=== PATIENT | female | born 1995 | race Caucasian/White ===

== ENCOUNTER → 2016-09-11 | Outpatient (CLI) | payer OTHER ==
--- NOTE | 2016-09-11 15:47 | REP ---
CT MAXILLOFACIAL SINUSES WITHOUT CONTRAST: 09/11/2016. Comparison: 10/26/2014, 09/20/2014. Clinical history: Chronic maxillary sinusitis. Technique: Axial soft tissue and bone windows with coronal bone window reconstructions are reviewed. Findings. Study again shows postsurgical changes with left uncinectomy and partial left inferior nasal turbinectomy with septoplasty. Since that time there has been right-sided surgery with uncinectomies. The antrostomies are widely patent. However, there is progression of disease within the sphenoid sinuses with mucosal thickening and air fluid level on the right while the left sphenoid shows only minimal mucosal thickening on its midline wall, both were totally normal on the previous study. There is opacification of anterior right ethmoid air cells on the current study, previously only the left anterior ethmoid air cells were opacified. There is mucosal thickening in the bilateral maxillary antra and bilateral air-fluid levels suggesting acute and chronic sinusitis. Frontal sinuses remain clear. The nasal spine of the maxilla and nasal bones were intact. Slightly deviated septum towards the right anteriorly and inferiorly. Orbital floor, medial saldana and lateral orbital struts were all intact. Sinus saldana were otherwise normal. The mandibular condyles articulate normally in their rami unremarkable. Skull base and craniocervical junction appear normal with mastoids intact. Impression: 1. Status post interval right sinus surgery with uncinectomy and findings now showing a complete opacification of the right sphenoid sinus which was clear on the previous study and anterior right ethmoid opacification well previously the left anterior ethmoids were opacified. Air-fluid levels in both maxillary sinuses have increased since the previous study. Frontal sinuses remain clear. Signed by Jacob Iniguez MD 09/11/2016 06:01 P
== END ==
LOC: M RAD 14:55
PROVIDERS: ATTEND Family Medicine
DX: J32.0 Chronic maxillary sinusitis (principal)

== ENCOUNTER → 2017-01-25 | Outpatient (REF) | payer OTHER | LOC: M SFHCLERA 11:30 | PROVIDERS: ATTEND Family Medicine | DX: B02.9 Zoster without complications (principal) ==

== ENCOUNTER → 2017-02-16 | Outpatient (CLI) | payer OTHER ==
--- NOTE | 2017-02-16 09:30 | REP ---
Clinical: Shortness of breath . Comparison: 09/11/2014 . Technique: PA and lateral. Findings: The mediastinum and cardiac silhouette are normal. The lung horn are clear and without acute consolidation, effusion, or pneumothorax. The skeletal structures are intact and normal. Impression: 1. No acute cardiopulmonary process. Signed by Khurram Richardson MD 02/16/2017 09:21 A
== END ==
LOC: M ADAMS 09:11
PROVIDERS: ATTEND Physician Assistant
DX: R06.02 Shortness of breath (principal); R07.9 Chest pain, unspecified

== ENCOUNTER → 2017-05-20 | Outpatient (REF) | payer OTHER ==
[2017-05-20 17:27] LABS: FREE T4 1.08 NG/DL (0.78-1.33)
== END ==
LOC: M SFHCLERA 14:21
PROVIDERS: ATTEND Family Medicine
DX: E04.9 Nontoxic goiter, unspecified (principal)

== ENCOUNTER → 2017-05-22 | Outpatient (REF) | payer OTHER ==
[2017-05-22 20:52] LABS: BASO # 0.1 10^3/uL (0.0-0.2); BASO % 0.5 % (0.0-1.0); EOS # 0.7 10^3/uL (0.0-0.50); EOS % 7.4 % (0.0-3.0); IMMATURE GRANULOCYTE % 0.2 % (0-0); LYMPH # 2.3 10^3/uL (1.5-6.5); LYMPH % 24.1 % (24.0-44.0); MEAN CORPUSCULAR HEMOGLOBIN 29.7 pg (27.0-33.0); MEAN CORPUSCULAR HGB CONC 32.5 g/dl (32.0-36.5); MEAN CORPUSCULAR VOLUME 91.3 fl (80.0-96.0); MONO # 1.2 10^3/uL (0.0-0.8); MONO % 12.5 % (0.0-5.0); NEUTROPHILS # 5.2 10^3/uL (1.8-7.7); NEUTROPHILS % 55.3 % (36.0-66.0); PLATELET COUNT, AUTOMATED 286 10^3/uL (150-450); RED CELL DISTRIBUTION WIDTH 12.3 % (11.5-14.5); WHITE BLOOD COUNT 9.5 10^3/uL (4.0-10.0)
[2017-05-23 11:06] LABS: CONTROL LINE MONO RF C INT CTR LINE PRESENT
== END ==
LOC: M LAB REF 11:15
PROVIDERS: ATTEND Physician Assistant Medical
DX: J06.9 Acute upper respiratory infection, unspecified (principal)

== ENCOUNTER → 2017-06-06 | Outpatient (REF) | payer OTHER | LOC: M LAB REF 16:23 | PROVIDERS: ATTEND Physician Assistant | DX: J02.9 Acute pharyngitis, unspecified (principal) ==

== ENCOUNTER → 2017-08-26 | Outpatient (REF) | payer OTHER ==
[2017-08-26 12:15] LABS: APPEARANCE, URINE CLEAR (CLEAR); BACTERIA, URINE AUTO 1+ (NEGATIVE); BILIRUBIN, URINE AUTO NEGATIVE (NEGATIVE); BLOOD, URINE BLOOD NEGATIVE (NEGATIVE); COLOR, URINE YELLOW (YELLOW); GLUCOSE, URINE (UA) AUTO NEGATIVE (NEGATIVE); KETONE, URINE AUTO NEGATIVE (NEGATIVE); LEUKOCYTE ESTERASE, URINE AUTO 1+ (NEGATIVE); MUCUS, URINE SMALL (NEGATIVE); NITRITE, URINE AUTO NEGATIVE (NEGATIVE); PROTEIN, URINE AUTO NEGATIVE (NEGATIVE); RBC, URINE AUTO 3 /HPF (0-3); SPECIFIC GRAVITY URINE AUTO 1.025 (1.002-1.035); SQUAMOUS EPITHELIAL CELL UR AU 1 /HPF (0-6); UROBILINOGEN, URINE AUTO 0.2 mg/dL (0.0-2.0); WBC, URINE AUTO 6 /HPF (0-3)
== END ==
LOC: M SFHCLERA 08:44
DX: N36.8 Other specified disorders of urethra (principal)

== ENCOUNTER → 2017-10-04 | Outpatient (CLI) | payer OTHER ==
[~2017-10-04] MED LIST: PROHANCE 279.3MG/ML 15ML VIAL (A9576) As Ordered; PROHANCE 279.3MG/ML 5ML VIAL (A9576) As Ordered
== END ==
LOC: M RAD 16:58
DX: N36.8 Other specified disorders of urethra (principal); N83.202 Unspecified ovarian cyst, left side
CPT/HCPCS: A9576

== ENCOUNTER 2017-10-09 07:18 | Day surgery (SDC) | payer OTHER ==
[2017-10-09] MEDS ORDERED: fentaNYL 100 MCG/2 ML INJECTION (J3010) As Ordered (07:44)
[2017-10-09] MEDS ORDERED: MIDAZOLAM INJ 2 MG/2 ML VIAL (J2250) As Ordered (07:44)
[2017-10-09 08:06] LABS: HEMATOCRIT 43.8 % (36.0-47.0); HEMOGLOBIN 14.8 g/dl (12.0-16.0); MEAN CORPUSCULAR HEMOGLOBIN 29.9 pg (27.0-33.0); MEAN CORPUSCULAR HGB CONC 33.8 g/dl (32.0-36.5); MEAN CORPUSCULAR VOLUME 88.5 fl (80.0-96.0); PLATELET COUNT, AUTOMATED 326 10^3/uL (150-450); RED BLOOD COUNT 4.95 10^6/uL (4.00-5.40); RED CELL DISTRIBUTION WIDTH 11.9 % (11.5-14.5); WHITE BLOOD COUNT 10.8 10^3/uL (4.0-10.0)
[2017-10-09] MEDS: LR 1,000 ML IV (08:09)
[2017-10-09 08:26] LABS: CONTROL LINE HCG INT CTR LINE PRESENT; HCG, SERUM QUALITATIVE NEGATIVE (NEGATIVE)
[2017-10-09] MEDS ORDERED: ceFAZolin 2 GM/D5W 50 ML IV BAG (J0690 PER 500MG) As Ordered (08:35)
[2017-10-09] MEDS ORDERED: LIDOCAINE 2% INJ 100 MG/5 ML SDV (FOR ANES.) As Ordered (08:51)
[2017-10-09] MEDS ORDERED: PROPOFOL 200 MG/20 ML VIAL As Ordered ×2 (08:51→09:01)
[2017-10-09] MEDS: LIDOCAINE 1% SDV INJ 30 ML VIAL As Ordered (09:07)
== END 2017-10-09 10:30 | disposition home or self-care (01) ==
LOC: M SDC 07:18
DX: N36.8 Other specified disorders of urethra (principal); G43.909 Migraine, unspecified, not intractable, without status migrainosus; J45.909 Unspecified asthma, uncomplicated; Z88.0 Allergy status to penicillin; Z88.2 Allergy status to sulfonamides; Z87.09 Personal history of other diseases of the respiratory system
CPT/HCPCS: 53060

== ENCOUNTER → 2017-11-05 | Outpatient (REF) | payer OTHER | LOC: M LAB REF 19:17 | DX: R30.0 Dysuria (principal) | CPT/HCPCS: 87086 ==

== ENCOUNTER → 2017-12-23 | Outpatient (REF) | payer OTHER ==
[2017-12-23 19:51] LABS: FREE T4 0.97 NG/DL (0.76-1.46)
[2017-12-23 19:51] LABS: THYROID STIMULATING HORMONE 0.677 uIU/ML (0.358-3.740)
[2017-12-24 10:57] LABS: TOTAL 25(OH) VITAMIN D 12.3 NG/ML (30.0-100.0)
== END ==
LOC: M SFHCADAM 16:20
DX: E04.1 Nontoxic single thyroid nodule (principal); E55.9 Vitamin D deficiency, unspecified

== ENCOUNTER → 2017-12-27 | Outpatient (CLI) | payer OTHER | LOC: M RAD 14:37 | DX: E04.1 Nontoxic single thyroid nodule (principal); J32.0 Chronic maxillary sinusitis | CPT/HCPCS: 76536 ==

== ENCOUNTER → 2018-11-07 | Outpatient (CLI) | payer BC ==
[~2018-11-07] MED LIST changes: +ALLE180T33 PO; +DIBU10OI TOP; +FLUT11IN INH; +PREVTAB2; -PROHANCE 279.3MG/ML 15ML VIAL (A9576) As Ordered; -PROHANCE 279.3MG/ML 5ML VIAL (A9576) As Ordered; +VENTAER INH
--- NOTE | 2018-11-07 14:36 | REP ---
Clinical: Cellulitis. Possible abscess. Technique: Real time gonzalez scale and color Doppler evaluation using linear high frequency transducer. Findings: Directed ultrasound examination at the right antecubital fossa demonstrates a complex collection presumed to be abscess measuring 9.9 x 7.3 x 9.5 mm with a sinus tract to the skin surface. Impression: Draining abscess in the antecubital fossa. Electronically Signed by Khurram Richardson MD 11/07/2018 02:27 P
== END ==
LOC: M RAD 13:23
PROVIDERS: ATTEND Family Medicine
DX: L03.113 Cellulitis of right upper limb (principal); L02.413 Cutaneous abscess of right upper limb

== ENCOUNTER → 2018-12-09 | Outpatient (CLI) | payer BC ==
--- NOTE | 2018-12-10 03:13 | REP ---
Clinical: Left-sided back pain and sciatica . Technique: AP, lateral, bilateral oblique, and coned-down views. Findings: Alignment and lordosis is maintained. The vertebral bodies including transverse process and spinous processes are intact and normal. There is no evidence for acute fracture / compression injury or subluxation. Focal degenerative changes include endplate sclerosis and disc space narrowing at L5-S1 and to a lesser extent the L4-5 with associated hypertrophic facet changes. Impression: Focal degenerative changes at the L5-S1 and L4-5 levels. Clinical correlation is recommended. Associated chronic spondylolysis without spondylolisthesis cannot definitively be excluded. Electronically Signed by Khurram Richardson MD 12/10/2018 03:03 A
== END ==
LOC: M ADAMS 16:15
PROVIDERS: ATTEND Physician Assistant Medical
DX: M54.42 Lumbago with sciatica, left side (principal); M51.37 Other intervertebral disc degeneration, lumbosacral region

== ENCOUNTER 2018-12-25 16:20 | Emergency (ER) | payer BC ==
[~2018-12-25] VITALS: Ht 165.1 cm; Wt 93.5 kg
[2018-12-25 17:00] LABS: BASO % 0.1 % (0.0-1.0); EOS # 0.1 10^3/uL (0.0-0.50); EOS % 0.4 % (0.0-3.0); HEMATOCRIT 46.1 % (36.0-47.0); HEMOGLOBIN 15.6 g/dl (12.0-15.5); LYMPH # 1.2 10^3/uL (1.5-6.5); LYMPH % 8.4 % (24.0-44.0); MEAN CORPUSCULAR HEMOGLOBIN 31.5 pg (27.0-33.0); MEAN CORPUSCULAR HGB CONC 33.8 g/dl (32.0-36.5); MEAN CORPUSCULAR VOLUME 92.9 fl (80.0-96.0); NEUTROPHILS # 11.5 10^3/uL (1.8-7.7); NEUTROPHILS % 83.7 % (36.0-66.0); PLATELET COUNT, AUTOMATED 271 10^3/uL (150-450); RED BLOOD COUNT 4.96 10^6/uL (4.00-5.40); WHITE BLOOD COUNT 13.8 10^3/uL (4.0-10.0)
[2018-12-25] MEDS ORDERED: NS 1,000 ML IV ONE (17:00)
[2018-12-25] MEDS ORDERED: KETOROLAC 30 MG/ML VIAL (J1885) IV ONE (17:00)
[2018-12-25] MEDS ORDERED: ONDANSETRON 4MG/2ML VIAL (J2405) IV ONE (17:00)
[2018-12-25 17:33] LABS: ALBUMIN 3.9 GM/DL (3.2-5.2); ALT/SGPT 40 U/L (12-78); AMYLASE 50 U/L (25-115); BILIRUBIN,DIRECT 0.2 MG/DL (0.0-0.2); BILIRUBIN,TOTAL 0.9 MG/DL (0.2-1.0); BLOOD UREA NITROGEN 16 MG/DL (7-18); CALCIUM LEVEL 8.3 MG/DL (8.5-10.1); CARBON DIOXIDE LEVEL 24 MEQ/L (21-32); CHLORIDE LEVEL 106 MEQ/L (98-107); CREATININE FOR GFR 0.63 MG/DL (0.55-1.30); GLOMERULAR FILTRATION RATE > 60.0 (>60); GLUCOSE, FASTING 85 MG/DL (70-100); LIPASE 144 U/L (73-393); POTASSIUM SERUM 4.5 MEQ/L (3.5-5.1); SODIUM LEVEL 137 MEQ/L (136-145); TOTAL PROTEIN 7.6 GM/DL (6.4-8.2)
[2018-12-25] MEDS ORDERED: ISOVUE-370 76% 100ML VIAL (Q9967) As Ordered ONE (18:02)
--- NOTE | 2018-12-25 19:09 | REPVR ---
EXAM: CT Abdomen and Pelvis With Contrast EXAM DATE/TIME: 12/25/2018 4:50 PM CLINICAL HISTORY: 23 years old, female; Abdominal pain; Other: Rlq; Additional info: Rlq pain TECHNIQUE: Imaging protocol: Axial computed tomography images of the abdomen and pelvis with intravenous contrast. Coronal and sagittal reformatted images were created and reviewed. Radiation optimization: All CT scans at this facility use at least one of these dose optimization techniques: automated exposure control; mA and/or kV adjustment per patient size (includes targeted exams where dose is matched to clinical indication); or iterative reconstruction. Contrast material: ISOVUE 370; Contrast volume: 100 ml; Contrast route: IV; COMPARISON: MRI PELVIS W/O FOLL WITH CON 10/04/2017 5:36 PM FINDINGS: ABDOMEN: Liver: Diffuse hepatic steatosis. Gallbladder and bile ducts: No radiodense gallstones. No biliary ductal dilatation. Pancreas: Unremarkable. Spleen: Unremarkable. Adrenals: Unremarkable. Kidneys and ureters: No mass. No radiodense calculi. No hydronephrosis. Stomach and bowel: Mild small bowel wall thickening and hyperemia, most notably in the lower abdomen and pelvis. Submucosal fat deposition in the colon, suggesting chronic inflammation. Questionable mild nonspecific rectosigmoid wall thickening. Appendix: Normal. PELVIS: Bladder: Mild circumferential urinary bladder wall thickening, likely secondary to underdistention. Reproductive: 5.7 x 4.7 cm left adnexal cystic lesion. ABDOMEN and PELVIS: Intraperitoneal space: Trace nonspecific free pelvic fluid, likely physiologic and/or reactive. No organized fluid collection. No free air. Bones/joints: Small, fracture umbilical hernia. Soft tissues: Unremarkable. Vasculature: Unremarkable. No aneurysm. Lymph nodes: Small mesenteric lymph nodes, likely reactive. No pathologically enlarged lymph nodes. IMPRESSION: 1. Findings suggestive of nonspecific enterocolitis, as described above. No abscess, obstruction or free air. Follow-up to resolution is recommended. 2. 5.7 x 4.7 cm left adnexal cystic lesion. If clinically indicated, pelvic ultrasound may be obtained for further evaluation. 3. Additional findings, as above. Electronically signed by: Tigre Colon On 12/25/2018 19:09:23 PM
--- NOTE | 2018-12-25 20:11 | REPVR ---
EXAM: US Pelvis Complete, Transabdominal and US Pelvis, Transvaginal EXAM DATE/TIME: 12/25/2018 7:57 PM CLINICAL HISTORY: 23 years old, female; Pelvic pain; Additional info: Large left adenexal cyst on ct/ro torsion TECHNIQUE: Imaging protocol: Real-time transabdominal and transvaginal pelvic ultrasound (complete) with image documentation. Transvaginal imaging was used for better evaluation of the endometrium and adnexa. COMPARISON: US PELVIC NON-OB COMPLETE 11/17/2014 4:36 PM FINDINGS: Uterus/cervix: 7.5 x 2.8 x 4 cm. Normal endometrial thickness, measuring approximately 5 mm. Right ovary: 2.5 x 2.1 x 1.7 cm. No mass. Normal ovarian blood flow. Left ovary: 5.3 x 4.7 x 5.5 cm. 5 x 4.8 x 4.4 cm complex cystic lesion with low level internal echoes. No solid mass. Normal ovarian blood flow. Free fluid: Trace nonspecific free pelvic fluid, likely physiologic. IMPRESSION: 5 x 4.8 x 4.4 cm complex left ovarian cystic lesion with low level internal echoes, suggestive of a hemorrhagic cyst or endometrioma. Electronically signed by: Tigre Colon On 12/25/2018 20:10:54 PM
[2018-12-25] MEDS ORDERED: FLAG500T PO (20:28)
[2018-12-25] MEDS ORDERED: CIPR-249 PO (20:28)
[2018-12-25] MEDS ORDERED: ONDA4TAB6 PO (20:29)
[2018-12-25 20:44] VITALS: BP 115/65
--- NOTE | 2018-12-30 14:06 | ED PDOC ---
Post-Departure Follow-Up edwige stout and dr orta faxed formal report of pelvis us and ct abd/p for Shimon Bey lg, MD December 30, 2018 14:06
== END 2018-12-25 20:52 | disposition home or self-care (01) ==
LOC: M ED 16:20
DX: K52.9 Noninfective gastroenteritis and colitis, unspecified (principal); N39.0 Urinary tract infection, site not specified; N83.292 Other ovarian cyst, left side; J45.909 Unspecified asthma, uncomplicated; Z79.3 Long term (current) use of hormonal contraceptives; Z88.0 Allergy status to penicillin; Z88.1 Allergy status to other antibiotic agents; Z88.2 Allergy status to sulfonamides
CPT/HCPCS: 74177; 76830; 76856; 80048; 80076; 81001; 82150; 83690; 84702; 85025; 87086; 93976; 96374; 96375; 99284; J1885; J2405; Q9967

== ENCOUNTER → 2018-12-26 | Outpatient (REF) | payer BC ==
[~2018-12-26] MED LIST changes: +CIPR-249 PO; +FLAG500T PO; +ONDA4TAB6 PO
== END ==
LOC: M LAB REF 12:24
PROVIDERS: ATTEND Physician Assistant
DX: K52.9 Noninfective gastroenteritis and colitis, unspecified (principal)

== ENCOUNTER 2019-03-02 07:06 | Day surgery (SDC) | payer BC ==
[~2019-03-02] VITALS: Ht 165.1 cm; Wt 92.5 kg
[~2019-03-02 07:06] MED LIST changes: +ACET-907 PO; +IBUP-1114 PO; +NS 1,000 ML IV ONE
[2019-03-02] MEDS ORDERED: LIDOCAINE 2% INJ 100 MG/5 ML SDV (FOR ANES.) As Ordered ONE (07:09)
[2019-03-02] MEDS ORDERED: PROPOFOL 200 MG/20 ML VIAL As Ordered ONE (07:09)
--- NOTE | 2019-03-02 08:52 | ROOR ---
Patient Name: Marleny Sanchez Procedure Date: 03/02/2019 8:20 AM Date of : 1995 Age: 23 Room: [facility] Gender: Female Note Status: Finalized Procedure: Colonoscopy Indications: Chronic diarrhea Providers: Sebastian Angulo MD Referring MD: ASHA Mcgarry Requesting Provider: Medicines: Monitored Anesthesia Care Complications: No immediate complications. Procedure: Pre-Anesthesia Assessment: - Prior to the procedure, a History and Physical was performed, and patient medications and allergies were reviewed. The patient is competent. The risks and benefits of the procedure and the sedation options and risks were discussed with the patient. All questions were answered and informed consent was obtained. Patient identification and proposed procedure were verified by the physician, the nurse and the anesthesiologist in the procedure room. Mental Status Examination: alert and oriented. Airway Examination: normal oropharyngeal airway and neck mobility. Respiratory Examination: clear to auscultation. CV Examination: normal. Prophylactic Antibiotics: The patient does not require prophylactic antibiotics. Prior Anticoagulants: The patient has taken no previous anticoagulant or antiplatelet agents. ASA Grade Assessment: II - A patient with mild systemic disease. After reviewing the risks and benefits, the patient was deemed in satisfactory condition to undergo the procedure. The anesthesia plan was to use monitored anesthesia care (MAC). Immediately prior to administration of medications, the patient was re-assessed for adequacy to receive sedatives. The heart rate, respiratory rate, oxygen saturations, blood pressure, adequacy of pulmonary ventilation, and response to care were monitored throughout the procedure. The physical status of the patient was re-assessed after the procedure. The Colonoscope was introduced through the anus and advanced to the terminal ileum, with identification of the appendiceal orifice and IC valve. The colonoscopy was performed without difficulty. The patient tolerated the procedure well. The quality of the bowel preparation was good. The terminal ileum, ileocecal valve, appendiceal orifice, and rectum were photographed. Scope insertion time was 2 minutes. Scope withdrawal time was 6 minutes. The total duration of the procedure was 8 minutes. Findings: The perianal and digital rectal examinations were normal. The terminal ileum appeared normal. Biopsies were taken with a cold forceps for histology. Verification of patient identification for the specimen was done by the physician and nurse using the patient's name, date and medical record number. Estimated blood loss was minimal. Normal mucosa was found in the entire colon. Biopsies for histology were taken with a cold forceps from the right colon, left colon, transverse colon and rectosigmoid colon for evaluation of microscopic colitis. Non-bleeding external and internal hemorrhoids were found during endoscopy. The hemorrhoids were small. Retroflexion in the rectum was not performed due to anatomy. Impression: - The examined portion of the ileum was normal. Biopsied. - Normal mucosa in the entire examined colon. Biopsied. - Non-bleeding external and internal hemorrhoids. Recommendation: - Patient has a contact number available for emergencies. The signs and symptoms of potential delayed complications were discussed with the patient. Return to normal activities tomorrow. Written discharge instructions were provided to the patient. - High fiber diet. - Continue present medications. - Await pathology results. - Repeat colonoscopy at age 51 for screening purposes. - Telephone GI clinic for pathology results in 2 weeks. - Return to primary care physician. Sebastian Angulo MD Sebastian Angulo MD 03/02/2019 8:52:32 AM Electronically signed by Sebastian Angulo MD Number of Addenda: 0 Note Initiated On: 03/02/2019 8:20 AM Estimated Blood Loss: Estimated blood loss was minimal.
[2019-03-02 09:00] VITALS: BP 117/80
== END 2019-03-02 09:12 | disposition home or self-care (01) ==
LOC: M OPP 07:06
PROVIDERS: ATTEND Internal Medicine Gastroenterology
DX: K64.8 Other hemorrhoids (principal); K52.9 Noninfective gastroenteritis and colitis, unspecified

== ENCOUNTER → 2019-04-08 | Outpatient (CLI) | payer BC ==
[~2019-04-08] MED LIST changes: -NS 1,000 ML IV ONE
--- NOTE | 2019-04-09 08:58 | REP ---
Clinical: Right hip pain and sciatica. Technique: Neutral and frog lateral views of the right hip. Findings: Osseous structures, joint spaces, and surrounding soft tissues are normal for age. No acute fracture dislocation. No overt congenital or arthritic changes appreciated. No loose bodies. The joint space appears normal. Impression: Normal, age-appropriate right hip radiographs. Electronically Signed by Khurram Richardson MD 04/09/2019 08:49 A
--- NOTE | 2019-04-09 08:59 | REP ---
Clinical: Back pain and sciatica . Technique: AP, lateral, bilateral oblique, and coned-down views. Findings: Alignment and lordosis is maintained. The vertebral bodies including transverse process and spinous processes are intact and there is no evidence for acute fracture / compression injury or subluxation. No evidence for spondylolysis or spondylolisthesis. Mild disc space narrowing at L5-S1 noted. Impression: Mild disc space narrowing at L5-S1. Electronically Signed by Khurram Richardson MD 04/09/2019 08:50 A
== END ==
LOC: M ADAMS 15:37
PROVIDERS: ATTEND Physician Assistant Medical
DX: M51.37 Other intervertebral disc degeneration, lumbosacral region (principal)

== ENCOUNTER → 2019-05-18 | Outpatient (CLI) | payer BC ==
[2019-05-18 18:32] LABS: ALBUMIN 3.7 GM/DL (3.2-5.2); ALT/SGPT 39 U/L (12-78); BILIRUBIN,TOTAL 0.3 MG/DL (0.2-1.0); BLOOD UREA NITROGEN 17 MG/DL (7-18); CALCIUM LEVEL 8.5 MG/DL (8.5-10.1); CARBON DIOXIDE LEVEL 28 MEQ/L (21-32); CHLORIDE LEVEL 107 MEQ/L (98-107); CREATININE FOR GFR 0.68 MG/DL (0.55-1.30); GLOMERULAR FILTRATION RATE > 60.0 (>60); GLUCOSE, FASTING 90 MG/DL (70-100); HEMATOCRIT 39.5 % (36.0-47.0); HEMOGLOBIN 12.7 g/dl (12.0-15.5); MEAN CORPUSCULAR HEMOGLOBIN 30.4 pg (27.0-33.0); MEAN CORPUSCULAR HGB CONC 32.2 g/dl (32.0-36.5); MEAN CORPUSCULAR VOLUME 94.5 fl (80.0-96.0); PLATELET COUNT, AUTOMATED 278 10^3/uL (150-450); POTASSIUM SERUM 4.6 MEQ/L (3.5-5.1); PROLACTIN 2.8 NG/ML; RED BLOOD COUNT 4.18 10^6/uL (4.00-5.40); SODIUM LEVEL 143 MEQ/L (136-145); TOTAL PROTEIN 6.7 GM/DL (6.4-8.2); WHITE BLOOD COUNT 9.8 10^3/uL (4.0-10.0)
[2019-05-18 19:11] LABS: HEMOGLOBIN A1c 5.2 %
== END ==
LOC: M SMT 15:10
PROVIDERS: ATTEND Obstetrics & Gynecology
DX: N97.9 Female infertility, unspecified (principal)

== ENCOUNTER → 2019-06-02 | Outpatient (CLI) | payer BC ==
[~2019-06-02] MED LIST changes: +ISOVUE-370 76% 100ML VIAL (Q9967) As Ordered ONE
--- NOTE | 2019-06-02 16:19 | REP ---
HYSTEROSALPINGOGRAM: The patient is referred for hysterosalpingogram. Clinician catheterized the cervix and injected contrast. I obtained fluoroscopic images. Uterine cavity opacifies well with contrast with no contour abnormality or filling defect. There is free passage of contrast through both nondilated fallopian tubes and there is free bilateral intraperitoneal spillage. IMPRESSION: Bilateral fallopian tube patency. Fluoroscopy time 0.6 minutes. Electronically Signed by Seth Eastman MD 06/03/2019 12:30 P
== END ==
LOC: M RADPRO 12:26
PROVIDERS: ATTEND Obstetrics & Gynecology
DX: N97.0 Female infertility associated with anovulation (principal)
CPT/HCPCS: 58340; 74740; Q9967

== ENCOUNTER → 2019-07-05 | Outpatient (CLI) | payer BC ==
[~2019-07-05] MED LIST changes: -ISOVUE-370 76% 100ML VIAL (Q9967) As Ordered ONE
--- NOTE | 2019-07-05 10:48 | REP ---
REASON: Cough and fever. COMPARISON: 02/16/2017 FINDINGS: The superior mediastinal structures are midline. The cardiac silhouette is unremarkable in size, shape, and position. The diaphragmatic surfaces of the lungs are regular, and the costophrenic angles are clear. The pulmonary horn are clear. The imaged osseous structures are intact. IMPRESSION: There is no acute cardiopulmonary disease. Electronically Signed by David Pickering DO 07/05/2019 11:43 A
== END ==
LOC: M ADAMS 10:04
PROVIDERS: ATTEND Physician Assistant
DX: R05 Cough (principal); R50.9 Fever, unspecified

== ENCOUNTER → 2019-08-13 | Outpatient (REF) | payer BC | LOC: M SFHCADAM 16:49 | PROVIDERS: ATTEND Family Medicine | DX: R30.0 Dysuria (principal) ==

== ENCOUNTER → 2020-02-08 | Outpatient (CLI) | payer BC ==
--- NOTE | 2020-02-08 17:00 | REP ---
Clinical: Thyroid nodule. Comparison: 12/27/2017 Technique: Real time gonzalez scale and color evaluation using linear high frequency transducer. Findings: Right thyroid lobe measures 4.9 x 1.8 x 1.7 cm and includes 3 x 5 x 2 mm upper pole complex hypoechoic nodule and 3 x 2 x 1 mm lower pole hypoechoic nodule. Left lobe measures 4.4 x 1.8 x 1.1 cm and includes 4 x 2 x 4 mm complex hypoechoic mid pole nodule, 3 x 1 x 2 mm complex hypoechoic lower pole nodule and 2 x 3 x 2 mm complex hypoechoic lower pole nodule. Impression: 1. Few small indeterminate hypoechoic nodules are now identified and increased from prior examination. Findings are relatively nonspecific in appearance. Electronically Signed by Khurram Richardson MD 02/08/2020 04:52 P
== END ==
LOC: M RAD 15:44
PROVIDERS: ATTEND Physician Assistant Medical
DX: E04.2 Nontoxic multinodular goiter (principal)

== ENCOUNTER → 2020-12-19 | Outpatient (CLI) | payer BC ==
[~2020-12-19] MED LIST changes: -DIBU10OI TOP; +DIBU28OI2 TOP
--- NOTE | 2020-12-19 13:27 | REP ---
INDICATION: NECK PAIN. COMPARISON: None. TECHNIQUE: AP, lateral, flexion/extension, bilateral oblique, and open-mouth views of the cervical spine. FINDINGS: Alignment is maintained. No acute fracture/compression injury or subluxation. No significant degenerative changes are appreciated. Open mouth view demonstrates normal C1-C2 articulation and odontoid process. Oblique views demonstrate patent neural foramen. IMPRESSION: Normal age-appropriate cervical spine radiograph series. <Electronically signed by Khurram Richardson > 12/19/20 [id number]
== END ==
LOC: M ADAMS 11:41
PROVIDERS: ATTEND Physician Assistant Medical
DX: M54.2 Cervicalgia (principal)

== ENCOUNTER → 2021-01-30 | Outpatient (CLI) | payer BC, OTHER ==
--- NOTE | 2021-01-30 10:06 | REP ---
INDICATION: RUQ PAIN. COMPARISON: None TECHNIQUE/RADIOTRACER AND DOSE: FOLLOWING THE INTRAVENOUS ADMINISTRATION OF 6.6 MCI TECHNETIUM 99 M-MEBROFENIN, MULTIPLE IMAGES OF THE RIGHT UPPER QUADRANT ARE PERFORMED FOR 60 MINUTES. NEXT 8 OZ OF ENSURE ENLIVE IS INGESTED AND FURTHER IMAGING IS PERFORMED FOR 65 MINUTES. FINDINGS: THE GALLBLADDER IS VISUALIZED AT 10 MINUTES POST INJECTION. THERE IS BILIARY TO BOWEL TRANSIT AT 25MINUTES POST INJECTION. THERE IS NO SCINTIGRAPHIC EVIDENCE OF CHOLECYSTITIS. GALLBLADDER EJECTION FRACTION IS CALCULATED TO BE 21% WHICH IS below NORMAL (greater than 35%). IMPRESSION: Diminished gallbladder ejection fraction 21%. <Electronically signed by Seth Eastman > 01/30/21 [id number]
== END ==
LOC: M RAD 07:15
PROVIDERS: ATTEND Physician Assistant
DX: R10.11 Right upper quadrant pain (principal); R94.8 Abnormal results of function studies of other organs and systems
CPT/HCPCS: 78227; A9537

== ENCOUNTER → 2021-03-10 | Outpatient (REF) | payer OTHER ==
[2021-03-10 19:00] LABS: FREE T4 0.92 NG/DL (0.76-1.46); THYROID STIMULATING HORMONE 0.798 uIU/ML (0.358-3.740)
== END ==
LOC: M SFHCADAM 15:43
PROVIDERS: ATTEND Physician Assistant Medical
DX: E04.1 Nontoxic single thyroid nodule (principal)

== ENCOUNTER → 2021-05-23 | Outpatient (CLI) | payer OTHER ==
--- NOTE | 2021-05-23 12:31 | REP ---
INDICATION: LUMBAGO W/SCIATICA BOTH SIDES COMPARISON: 04/08/2019 TECHNIQUE: AP, lateral, bilateral oblique, and coned-down views of the lumbar spine. FINDINGS: Alignment and lordosis maintained. Vertebral bodies are intact. No acute fracture/compression injury or subluxation. Disc spaces are relatively normal/age-appropriate although subtle disc space narrowing at L5-S1 cannot be excluded. No obvious spondylolysis or spondylolisthesis. IMPRESSION: Relatively normal examination. Cannot exclude mild disc space narrowing at L5-S1. <Electronically signed by Khurram Richardson > 05/23/21 [id number]
== END ==
LOC: M ADAMS 12:06
PROVIDERS: ATTEND Physician Assistant Medical
DX: M54.42 Lumbago with sciatica, left side (principal); M54.41 Lumbago with sciatica, right side